=== PATIENT | male | born 1990 | race Caucasian/White ===

== ENCOUNTER 2017-09-04 06:04 | Emergency (ER) | payer BC, OTHER ==
[~2017-09-04] VITALS: Ht 170.2 cm; Wt 51.7 kg
[~2017-09-04 06:04] MED LIST: AMPH20CA3 PO; MINO50TA PO; [UNRECOGNIZED DRUG - CODE] TOP
[2017-09-04 06:12] VITALS: TEMP 36.4; Ht 170.2 cm; Wt 51.7 kg
[2017-09-04] MEDS ORDERED: AMPH20TA2 PO (06:47)
[2017-09-04] MEDS ORDERED: LIDOCAINE/EPINEPH/TETRACAINE 1 EA SYR EXT STA (06:51)
[2017-09-04] MEDS ORDERED: DIPHTHERIA/TETANUS/PERTUSSIS 0.5 ML SYR/VIAL IM. ONE (07:00)
--- NOTE | 2017-09-04 07:17 | DIAGNOSTIC IMAGING REPORT ---
HEAD WITHOUT CONTRAST (CT) CT DOSE: HISTORY: head injury TECHNIQUE: Multiaxial CT images of the head were performed without the use of intravenous contrast. A dose lowering technique was utilized adhering to the principles of ALARA. Comparison: None. Findings: Fracture tip nasal bones. Fluid within the left maxillary sinus. Extracranial frontal soft tissue edema. The calvarium and skull base are intact. The ventricles and sulci are within normal limits. There is no mass, hematoma, midline shift, or acute infarct. Impression: No acute intracranial abnormality. Fracture tip nasal bones. Fluid within the left maxillary sinus. The above report was generated using voice recognition software. It may contain grammatical, syntax or spelling errors. Electronically signed by: Dany Mora M.D. 09/04/2017 7:15 AM Dictated Date/Time: 09/04/2017 7:14 AM
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
[2017-09-04] MEDS ORDERED: XYLOCAINE 1%/SOD BICARB 20 ML VIAL INFIL ONE (07:34)
[2017-09-04] MEDS ORDERED: AMOXICILLIN/CLAVULANATE TAB 875 MG TAB PO ONE (07:45)
[2017-09-04] MEDS ORDERED: OXYCODONE/ACETAMINOPHEN 5-325 TAB PO ONE (09:00)
[2017-09-04] MEDS ORDERED: AMOX875T PO (09:38)
[2017-09-04] MEDS ORDERED: OXYC-57 PO (09:38)
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
--- NOTE | 2017-09-04 09:50 | EMERGENCY ROOM VISIT NOTE ---
ED Visit Note I was asked to suture this patient's wound by Dr. Mari. Please see his dictation for full history and physical. Informed oral consent was obtained from the patient. Right forehead was prepped with Betadine and draped with a sterile towel. Wound was anesthetized using 3 mL 1% buffered lidocaine in a direct infiltration. A thorough inspection was performed. Wound was irrigated copiously using normal sterile saline under jet spray lavage. There was no additional foreign material visible in the wound. It was then closed using 5-0 nylon in a simple interrupted and [id number] fashion. Excellent wound edge approximation was achieved. Hemostasis was achieved. Attention was then turned to the left eyebrow. The left eyebrow was prepped with Betadine and draped with a sterile towel. Wound was anesthetized using 3 mL 1% buffered lidocaine in a direct infiltration. A thorough inspection was performed. Wound was irrigated copiously using normal sterile saline under jet spray lavage. There was no additional foreign material visible in the wound. It was then closed using 5-0 nylon in a simple interrupted and [id number] fashion. Excellent wound edge approximation was achieved. Hemostasis was achieved. Attention was then turned to left cheek. It was prepped with Betadine and draped with a sterile towel. Wound was anesthetized using 4 mL 1% buffered lidocaine in a direct infiltration. A thorough inspection was performed. Wound was irrigated copiously using normal sterile saline under jet spray lavage. There was no additional foreign material visible in the wound. It was then closed using 5-0 nylon in a simple interrupted and [id number] fashion. Excellent wound edge approximation was achieved. Hemostasis was achieved. Wound care precautions were reviewed. Wound care handout was provided. Sutures out in 6-7 days. He may shower. Avoid prolonged soaking or swimming for 2 weeks. Cleanse daily with soap and water and reapply a small amount of bacitracin or Neosporin. Length of wounds-2.5 cm right forehead, 2.5 cm left eyebrow, 3 cm left cheek Problem List Medical Problems: (1) ADHD (attention deficit hyperactivity disorder) Status: Chronic Current/Historical Medications Scheduled Amoxicillin & Pot Clavulanate (Augmentin 875-125 mg), 875 MG PO BID Amphetamine-Dextroamphetamine 20MG (Adderall 20MG), 20 MG PO BID Scheduled PRN Oxycodone/Acetaminophen 5MG/325MG (Percocet 5MG/325MG), 1 TAB PO Q6H PRN for Pain Allergies Coded Allergies: Erythromycin (Verified Allergy, Unknown, UNKN, 10/12/13) Vital Signs Date Time Temp Pulse Resp B/P (MAP) Pulse Ox O2 Delivery O2 Flow Rate FiO2 09/04/17 08:58 88 18 129/87 97 Room Air 09/04/17 07:15 83 18 138/93 100 Room Air 09/04/17 06:12 36.4 107 18 133/88 97 Room Air Medications Administered Medications (Trade) Dose Ordered Sig/Lolis Route Start Time Stop Time Status Last Admin Dose Admin Diphtheria/ Pertussis/Tetanus Vacc (Adacel Inj) 0.5 ml ONCE ONCE IM. 09/04/17 07:00 09/04/17 07:01 DC 09/04/17 07:00 0.5 ML Tetracaine/ Epinephrine/ Lidocaine (L.e.t. Gel 4%/ 1:100/0.5%) 1 ea NOW STAT EXT 09/04/17 06:51 09/04/17 06:52 DC 09/04/17 06:59 1 EA Amoxicillin/ Clavulanate Potassium (Augmentin Tab) 875 mg ONE ONCE PO 09/04/17 07:45 09/04/17 07:46 DC 09/04/17 07:38 875 MG Oxycodone/ Acetaminophen (Percocet 5-325mg Tab) 1 tab NOW ONCE PO 09/04/17 09:00 09/04/17 09:01 DC 09/04/17 08:57 1 TAB Departure Information Impression Primary Impression: Nasal bone fracture Additional Impressions: Orbital floor fracture Facial contusion Dispostion Home / Self-Care Prescriptions Oxycodone/Acetaminophen 5MG/325MG (PERCOCET 5MG/325MG) Tab 1 TAB PO Q6H Y for Pain, #20 TAB Prov: Kishore Mari D.O. 09/04/17 Amoxicillin & Pot Clavulanate (Augmentin 875-125 mg) 1 Tab Tab 875 MG PO BID, #14 TAB Prov: Kishore Mari D.O. 09/04/17 Referrals No Doctor, Assigned Freiman, Davis., MD Mario, Slick A., D.O. Forms HOME CARE DOCUMENTATION FORM, IMPORTANT VISIT INFORMATION Patient Instructions My [facility] [employer] Additional Instructions Augmentin as prescribed. Percocet as prescribed. No driving within 6 hours of use. Do not take additional Tylenol while taking Percocet. Follow-up with Dr. Martin from ophthalmology. Call Wednesday for an appointment. Follow-up with ENT for your nasal fracture/facial fracture. Dr. Canales is listed. Follow-up with your doctor for further care and evaluation in 1-2 days. Return to the emergency department for worsening or new symptoms or any concerns. You have been examined and treated today on an emergency basis only. This is not a substitute for, or an effort to provide, complete comprehensive medical care. It is impossible to recognize and treat all injuries or illnesses in a single emergency department visit. It is therefore important that you follow up closely with your doctor. Call as soon as possible for an appointment. Problem Qualifiers
[2017-09-04 10:00] VITALS: BP 134/93; PULSE 94; O2SAT 100
== END 2017-09-04 10:02 | disposition home or self-care (01) ==
LOC: C.EDB 06:06 → C.EDA 10:02
DX: S02.2XXA Fracture of nasal bones, initial encounter for closed fracture (principal); S02.32XA Fracture of orbital floor, left side, initial encounter for closed fracture; S00.83XA Contusion of other part of head, initial encounter; Y04.0XXA Assault by unarmed brawl or fight, initial encounter; F90.9 Attention-deficit hyperactivity disorder, unspecified type; Z88.1 Allergy status to other antibiotic agents

== ENCOUNTER → 2017-09-09 | Outpatient (CLI) | payer OTHER ==
[~2017-09-09] MED LIST changes: +AMOX875T PO; -AMPH20CA3 PO; +AMPH20TA2 PO; -MINO50TA PO; +OXYC-57 PO; -[UNRECOGNIZED DRUG - CODE] TOP
[2017-09-09 17:51] LABS: BASO % 0.5 %; BASO ABS # 0.02 K/uL (0-0.2); EOS % 4.8 %; EOS ABS # 0.21 K/uL (0-0.5); HEMATOCRIT 42.3 % (42-52); HEMOGLOBIN 14.8 g/dL (14.0-18.0); IG# 0.02 K/uL (0.00-0.02); LYMPH % 31.2 %; LYMPH ABS # 1.38 K/uL (1.2-3.4); MEAN CELL VOLUME 88.3 fL (80-100); MEAN CORPUSCULAR HEMOGLOBIN 30.9 pg (25-34); MEAN PLATELET VOLUME 9.8 fL (7.4-10.4); MONO % 13.6 %; NEUT % 49.4 %; NEUT ABS # 2.19 K/uL (1.4-6.5); PLATELET COUNT 265 K/uL (130-400); RED CELL DISTRIBUTION WIDTH CV 12.7 % (11.5-14.5); RED CELL DISTRIBUTION WIDTH SD 40.7 fL (36.4-46.3); WHITE BLOOD COUNT 4.42 K/uL (4.8-10.8)
[2017-09-09 18:05] LABS: POTASSIUM 3.7 mmol/L (3.5-5.1)
== END | disposition home or self-care (01) ==
LOC: C.LAB 16:50
DX: Z01.818 Encounter for other preprocedural examination (principal)

== ENCOUNTER → 2017-09-10 | Day surgery (SDC) | payer OTHER ==
[2017-09-09 13:03] VITALS: Ht 170.2 cm; Wt 51.8 kg
[~2017-09-10] VITALS: Ht 170.2 cm; Wt 51.8 kg
[~2017-09-10] MED LIST changes: +ATROPINE SULFATE 0.1 MG/ML 5ML SYR IV PRN; +BACITRACIN/POLYMYXIN B OINT 90 APPLN/28.4 GM TUBE EXT ONE; +CEFAZOLIN SOD 2000MG/15 ML IV PUSH IV ONE; +DEXAMETHASONE SOD INJ 4 MG/ML VIAL IV PRN; +DEXAMETHASONE SOD INJ 4 MG/ML VIAL ONE; +EpHEDrine SULFATE INJ 50 MG/ML AMP IV PRN; +EpHEDrine SULFATE INJ 50 MG/ML AMP ONE; +EpINEphrine INJ 1MG/ML AMP 1 MG/ML AMP ONE; +FENTANYL CITRATE INJ 50 MCG/1 ML 2 ML VIAL IV PRN; +FENTANYL CITRATE INJ 50 MCG/1 ML 2 ML VIAL ONE; +GLYCOPYRROLATE INJ 0.2 MG/ML VIAL ONE; +HYDROCODONE/ACETAMIN 5/325MG TAB PO PRN; +KETOROLAC TROMETHAMINE 30 MG/ML VIAL IV. PRN; +LABETALOL HCL IV 5 MG/ML 20ML IV PRN; +LIDOCAINE 4% MPF SOAK 5 ML = 1 DOSE TOP ONE; +LIDOCAINE HCL 2% 2 ML VIAL (20MG/ML) ONE; +LIDOCAINE/EPINEPHRINE 1% 20 ML VIAL ONE; +METOCLOPRAMIDE HCL INJ 5 MG/ML 2 ML VIAL IV PRN; +MIDAZOLAM HCL 1 MG/ML 2ML VIAL ONE; +MoRPHine SULFATE 10 MG/ML CARP/VIAL IV PRN; +NEOSTIGMINE METHYLSULFATE 5 MG/5 ML SYR ONE; +ONDANSETRON INJ 2 MG/ML 2 ML VIAL IV PRN; +ONDANSETRON INJ 2 MG/ML 2 ML VIAL ONE; +OXYMETAZOLINE HCL 0.05% NA SPR 15 ML BTL ONE; +OXYMETAZOLINE HCL 0.05% NA SPR 15 ML BTL PRN; +PHENYLEPHRINE 100MCG/ML 5ML SYR IV PRN; +PHENYLEPHRINE HCL INJ 10 MG/ML VIAL ONE; +PROPOFOL IV EMULSION 10 MG/ML 20 ML VIAL IV ONE; +ROCURONIUM BROMIDE 10 MG/ML 5 ML VIAL IV ONE; +SUCCINYLCHOLINE CHLORIDE 20 MG/ML 10 ML VIAL IV ONE
--- NOTE | 2017-09-10 12:24 | History & Physical Bridge - [place] ---
H&P Re-Evaluation Bridge Note: I have examined the patient, reviewed the History & Physical and in the interval since the performance of the History & Physical I have noted the following changes of clinical significance: No changes noted
--- NOTE | 2017-09-10 13:58 | [facility] Operative Report ---
Operative Report Operative Date Sep 10, 2017. Pre-Operative Diagnosis Nasal Fracture, Nasal Septal Deviation Post-Operative Diagnosis same Procedure(s) Performed Closed Reduction Of Nasal Fracture, Septoplasty Surgeon Dr. Jessi Canales Script Worker Surgeon(s) 0 Estimated Blood Loss 10CC Findings 1. DEPRESSED LEFT AND ELEVATED RIGHT NASAL BONE FX'S WITH MODERATE DORSAL DEVIATION TO RIGHT 2. MODERATE RIGHT SEPTAL DEVIATION Specimens none Anesthesia Type General I attest to the content of the Intraoperative Record and any orders documented therein. Any exceptions are noted below.
--- NOTE | 2017-09-10 14:01 | Discharge Instructions ---
Discharge Instructions Date of Service Sep 10, 2017. Admission Reason for Admission: Nasal Fracture, Nasal Septal Deviation Discharge Discharge Diagnosis / Problem: SAME Discharge Goals Goal(s): Therapeutic intervention Activity Recommendations Activity Limitations: as noted below 1. LIGHT ACTIVITY AND NO NOSE BLOWING FOR 2 WEEKS; NO DRIVING WHILE ON [place] . Current Hospital Diet Patient's current hospital diet: Discharge Diet Recommended Diet: Regular Diet Procedures Procedures Performed: Closed Reduction Of Nasal Fracture, Septoplasty Pending Studies Studies pending at discharge: no Medical Emergencies . Who to Call and When: Medical Emergencies: If at any time you feel your situation is an emergency, please call 911 immediately. . Non-Emergent Contact Non-Emergency issues call your: Surgeon . . "Provider Documentation" section prepared by Javad Canales. .
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
--- NOTE | 2017-09-10 14:56 | Anesthesia Progress Nt - [facility] ---
Anesthesia Post Op Note Date & Time Sep 10, 2017 at 14:56 Vital Signs Pain Intensity: 7.0 Vital Signs Past 12 Hours Date Time Temp Pulse Resp B/P (MAP) Pulse Ox O2 Delivery O2 Flow Rate FiO2 09/10/17 14:14 36.7 105 16 129/76 100 Humidified Air 6 Humidified Oxygen 09/10/17 11:02 36.5 63 18 117/79 (92) 100 Room Air Notes Mental Status: alert / awake / arousable, participated in evaluation Pt Amnestic to Procedure: Yes Nausea / Vomiting: adequately controlled Pain: adequately controlled Airway Patency, RR, SpO2: stable & adequate BP & HR: stable & adequate Hydration State: stable & adequate Anesthetic Complications: no major complications apparent
[2017-09-10 15:05] VITALS: TEMP 36.5
[2017-09-10 15:44] VITALS: BP 113/71; PULSE 71; O2SAT 99
== END | disposition home or self-care (01) ==
LOC: X.SURG 10:37
DX: S02.2XXA Fracture of nasal bones, initial encounter for closed fracture (principal); J34.2 Deviated nasal septum; Y04.0XXA Assault by unarmed brawl or fight, initial encounter; Z98.818 Other dental procedure status; Z84.89 Family history of other specified conditions; Z79.899 Other long term (current) drug therapy; Z88.1 Allergy status to other antibiotic agents